=== PATIENT | male | born 1995 | race Caucasian/White ===

== ENCOUNTER 2017-10-01 14:33 | Emergency (ER) | payer OTHER ==
[~2017-10-01] VITALS: Ht 160 cm; Wt 49.9 kg
[2017-10-01 15:04] VITALS: BP 114/79
== END 2017-10-01 16:23 | disposition home or self-care (01) ==
LOC: ER 14:43
DX: S09.90XA Unspecified injury of head, initial encounter (principal); W22.8XXA Striking against or struck by other objects, initial encounter; Y93.89 Activity, other specified; Y99.8 Other external cause status; Y92.89 Other specified places as the place of occurrence of the external cause
CPT/HCPCS: 70450

== ENCOUNTER 2019-11-25 15:20 | Emergency (ER) | payer SELFPAY ==
[~2019-11-25] VITALS: Ht 162.6 cm; Wt 54.4 kg
[2019-11-25 15:45] VITALS: BP 147/91
[2019-11-25] MEDS: cefTRIAXone SOD 1,000 MG VL IM ONE (18:21)
[2019-11-25] MEDS: methylPREDNISolone SOD SUCC 125 MG/2 ML VL IM ONE (18:22)
== END 2019-11-25 18:37 | disposition home or self-care (01) ==
LOC: ER 15:20
DX: J03.90 Acute tonsillitis, unspecified (principal)
CPT/HCPCS: 96372; 99283; J0696; J2930